=== PATIENT | male | born 1975 | race Caucasian/White ===

== ENCOUNTER 2021-02-18 00:36 | Emergency (ER) | payer SELFPAY ==
[~2021-02-18] VITALS: Ht 188 cm; Wt 81.6 kg
[2021-02-18 01:10] VITALS: BP 132/78
[2021-02-18] MEDS ORDERED: risperiDONE 1 MG TAB PO ONE (02:15)
== END 2021-02-18 03:39 | disposition left against medical advice (07) ==
LOC: EDBD 00:36 → ER 00:38
DX: F22 Delusional disorders (principal); Z53.29 Procedure and treatment not carried out because of patient's decision for other reasons; Z87.891 Personal history of nicotine dependence